=== PATIENT | female | born 1950 | race American Indian/Alaskan Native ===

== ENCOUNTER 2016-10-15 10:02 | Day surgery (SDC) | payer MEDICARE ==
--- NOTE | 2016-10-15 10:26 | Short Stay Summary ---
Short Stay Documentation Date of service: 10/15/16 Narrative H&P: 66y/o with postmenopausal bleeding. Ultrasound demonstrates a thickened endometrium. An endometrial biopsy was attempted in the office but unsuccessful secondary to a stenotic cervical os. - History Principal diagnosis: Postmenopausal bleeding Past Medical History: arthritis, hypertension Past Surgical History: arthroscopy, cholecystectomy, Other (D&C; tubal ligation) Social history: - Allergies and Medications Current Medications: Allergies epinephrine [From Adrenalin] Allergy (Verified 10/14/16 08:44) heart races epinephrine HCl [From Adrenalin] Allergy (Verified 10/14/16 08:44) heart races morphine Allergy (Verified 10/14/16 08:44) TACHYCARDIA sulfamethoxazole [From Bactrim] Allergy (Verified 10/14/16 08:44) Rash trimethoprim [From Bactrim] Allergy (Verified 10/14/16 08:44) Rash Home Medications Medication Instructions Recorded Confirmed Last Taken Type Acetaminophen [Shake That Ache] 500 mg PO PRN PRN 10/14/16 10/14/16 Unknown History Ibuprofen [Motrin] 800 mg PO Q8HR PRN 10/14/16 10/14/16 Unknown History Ranitidine HCl [Heartburn Relief] 150 mg PO BID 10/14/16 10/14/16 Unknown History amLODIPine [Norvasc] 5 mg PO DAILY 10/14/16 10/14/16 Unknown History - Physical exam General appearance: no acute distress Integumentary: no rash HEENT: Atraumatic Lungs: Clear to auscultation Breasts: deferred Heart: Regular rate Gastrointestinal: normal Female Genitourinary: deferred Rectal Exam: deferred Extremities: no ischemia - Brief post op/procedure progress note Date of procedure: 10/15/16 Pre-op diagnosis: postmenopausal bleeding Post-op diagnosis: same Procedure: Hysteroscopy Dilatation and curettage Anesthesia: ALEENA Surgeon: MICHELA WALTON Estimated blood loss: minimal Pathology: list (endometrial curettings) Specimen disposition: to lab Condition: stable - Hospital course Hospital course: The patient was admitted the day of surgery and underwent a D&C hysteroscopy. Please see operative note for details of surgery. Her postoperative course was uneventful. - Disposition Condition at discharge: Good Disposition: DISCHARGED TO HOME OR SELFCARE Short Stay Discharge Plan Activity: no restrictions Diet: regular Additional Instructions: Follow-up in [address] Flores Prescriptions: Ibuprofen [Motrin] 800 mg PO Q8HR PRN #60 tablet PRN Reason: Pain oxyCODONE /ACETAMINOPHEN [Percocet 5/325] 1 tab PO Q6HR PRN #30 tablet PRN Reason: Pain
[2016-10-15] MEDS ORDERED: NACL BACTERIOSTATIC INFILTRATI ONE (10:58)
--- NOTE | 2016-10-15 11:01 | Anesthesia Day of Surgery ---
Anesthesia Day of Surgery - Day of Surgery Patient Examined: Yes Patient H&P Reviewed: Yes Patient is NPO: Yes
[2016-10-15] MEDS ORDERED: ZOFRAN IV PRN (11:02)
[2016-10-15] MEDS ORDERED: SUBLIMAZE IV PRN (11:02)
--- NOTE | 2016-10-15 11:02 | Anesthesia Consultation ---
Anesthesia Consult and Med Hx Date of service: 10/15/16 - Airway Anesthetic Teeth Evaluation: Good ROM Head & Neck: Inadequate Mental/Hyoid Distance: Inadequate Mallampati Class: Class III Intubation Access Assessment: Possibly Difficult - Pulmonary Exam CTA: Yes - Cardiac Exam Cardiac Exam: RRR - Pre-Operative Health Status ASA Pre-Surgery Classification: ASA3 Proposed Anesthetic Plan: General - Pulmonary Hx Smoking: No Hx Sleep Apnea: No - Cardiovascular System Hx Hypertension: Yes (since 2004) - Central Nervous System Hx Psychiatric Problems: No - Gastrointestinal Hx Gastroesophageal Reflux Disease: Yes (on meds) - Other Systems Hx Alcohol Use: Yes (occas) Hx Cancer: No
[2016-10-15] MEDS ORDERED: NACL 0.9% 1000 ML 1,000 ML ONE (11:30)
[2016-10-15] MEDS ORDERED: XYLOCAINE MPF 2% ONE (11:30)
[2016-10-15 11:43] LABS: Anion Gap 17 mmol/L; Blood Urea Nitrogen 18 mg/dL (7-17); Carbon Dioxide 25 mmol/L (22-30); Chloride 104.3 mmol/L (98-107); Glucose 90 mg/dL (65-100); Potassium 4.2 mmol/L (3.6-5.0); Sodium 142 mmol/L (137-145)
[2016-10-15] MEDS ORDERED: NACL 0.9% 1000 ML 1,000 ML IV SCH (12:00)
[2016-10-15] MEDS ORDERED: VERSED IV NR (12:00)
[2016-10-15] MEDS ORDERED: PEPCID IV NR (12:00)
[2016-10-15] MEDS ORDERED: DIPRIVAN 10 MG/ML IV ONE (12:12)
[2016-10-15] MEDS ORDERED: SUBLIMAZE ONE (12:12)
[2016-10-15] MEDS ORDERED: SORBITOL-MANNITOL IRRIG IR ONE (12:45)
[2016-10-15] MEDS ORDERED: DECADRON ONE (12:54)
[2016-10-15] MEDS ORDERED: ZOFRAN ONE (12:54)
--- NOTE | 2016-10-15 13:08 | Operative Report ---
Operative Report Operative Report: Date of surgery: 10/15/2016 Preoperative diagnosis: Postmenopausal bleeding; stenotic cervical os Postoperative diagnosis: Same as above Procedure: Hysteroscopy; dilatation and curettage Surgeon: Yasmin Flores M.D. Anesthesia: Gen. endotracheal anesthesia Estimated blood loss: Minimal Indication: 66-year-old 013 with a history of postmenopausal bleeding. The patient had findings of a stenotic cervical os and was unable to perform an endometrial biopsy in the office. Indication: Atrophic postmenopausal endometrium. Prominent septum likely suggestive of an arcuate uterus Pathology: Endometrial curettings Procedure: The patient was taken to the operating room and given general endotracheal anesthesia without complication. The patient is prepped and draped in a normal sterile fashion. A bivalve speculum was placed in the patient's vagina and a single-tooth tenaculums placed on the anterior lip of the cervix. The uterine cavity was then sounded. The cervical os was then dilated with graduated dilators. The hysteroscope was then inserted through the dilated cervical os. Insufflation of the uterine cavity was performed with normal saline. Findings of the endometrial cavity revealed evidence of an atrophic postmenopausal endometrium. There was a prominent septum and the endometrial cavity likely significant for an arcuate uterus. The hysteroscope was then removed. Sharp curettage of the endometrial surface was performed until cry was achieved. The vaginal instruments were then removed atraumatically. The patient was then successfully extubated and taken to the recovery room in stable condition. All sponge laps and needle counts were correct 2. Pathology consisted of products of conception.
[2016-10-15] MEDS: DILAUDID IV PRN ×4 (13:20→13:50)
--- NOTE | 2016-10-15 13:50 | Post Anesthesia Evaluation ---
- Post Anesthesia Evaluation Patient Participated: Yes Airway Patent: Yes Stable Respiratory Function: Yes Nausea/Vomiting: No Temp > 96.8F: Yes Pain Manageable: Yes Adequeate Hydration: Yes Anesthesia Complications: No Block Receding Appropriately: Not Applicable Patient on Ventilator: No
[2016-10-15 14:20] VITALS: BP 155/90
== END 2016-10-15 15:13 | disposition home or self-care (01) ==
LOC: OR 10:02
PROVIDERS: ATTEND Obstetrics & Gynecology
DX: N88.2 Stricture and stenosis of cervix uteri (principal); I10 Essential (primary) hypertension; K21.9 Gastro-esophageal reflux disease without esophagitis; M19.90 Unspecified osteoarthritis, unspecified site; G47.33 Obstructive sleep apnea (adult) (pediatric); Z72.89 Other problems related to lifestyle; Z88.1 Allergy status to other antibiotic agents; Z88.5 Allergy status to narcotic agent; Z88.8 Allergy status to other drugs, medicaments and biological substances
CPT/HCPCS: 36415; 58558; 80048; 88305; J1100; J1170; J2250; J2405; J2704; J3010; J7030